=== PATIENT | male | born 1980 | race Two or more races ===

== ENCOUNTER 2017-07-28 11:16 | Observation (INO) | payer SELFPAY ==
[~2017-07-28] VITALS: Ht 182.9 cm; Wt 88.8 kg
[~2017-07-28 11:16] MED LIST: ALBUTEROL SULF8.5 GM IH; AMOXICILLIN500 MG PO; BACTRIM,SEPT1 TABLET PO; BACTROBAN NASAL1 G1 BOTH NARES; FLOVENT DISKUS1 DISK IH; NAPROSYN500 MG PO; NO MEDICATIONS; PREDNISONE20 MG PO; ROBITUSSIN AC,T10 ML PO; TAMIFLU75 MG PO; VENTOLIN HFA18 GM IH; ZITHROMAX Z-PA250 MG PO; ZOFRAN ODT4 MG PO; ZYRTEC10 M3 PO
[2017-07-28 12:16] LABS: HEMATOCRIT 48.6 % (38.0-50.0); HEMOGLOBIN 17.2 G/DL (12.5-16.6); MCH 31.8 PG (29.0-34.0); MCHC 35.4 G/DL (30.0-36.0); MCV 89.8 FL (86-99); RBC DIS.WIDTH-CV 11.9 % (11.8-14.6); RED BLOOD COUNT 5.41 M/uL (4.00-5.50); WHITE BLOOD COUNT 7.7 K/uL (4.1-10.2)
[2017-07-28 12:52] LABS: CHLORIDE 100 MEQ/L (99-109); CREATININE 1.1 MG/DL (0.6-1.3); GFR ESTIMATE (CALCULATED) > 59 mL/min/ (58.99-99999); GLUCOSE 109 mg/dL (70-99); POTASSIUM 4.3 MEQ/L (3.7-5.4); SODIUM 136 MEQ/L (136-147); UREA NITROGEN (BUN) 9 mg/dL (9-23)
[2017-07-28 13:15] LABS: PLAT.SUFFICIENCY ADEQUATE; PLATELET CLUMPS PRESENT - PLATELET COUNT APPEARS ADQ.; PLATELET COUNT UNABLE TO REPORT K/uL (156-360)
[2017-07-28 15:04] LABS: ALBUMIN 4.8 G/DL (3.2-4.8); ALKALINE PHOSPHATASE 75 IU/L (3-129); ALT (GPT) 19 IU/L (3-49); AST (GOT) 20 IU/L (2-34); DIRECT BILIRUBIN 0.5 mg/dL (0.0-0.3); TOTAL BILIRUBIN 2.7 MG/DL (0.0-1.0); TOTAL PROTEIN 8.2 G/DL (6.4-8.3)
[2017-07-28 17:28] LABS: LIPASE 19 U/L (1.0-51.0)
[2017-07-28 21:35] VITALS: BP 133/82
[2017-07-29 00:39] VITALS: BP 132/87
[2017-07-29 04:54] LABS: HEMATOCRIT 45.7 % (38.0-50.0); HEMOGLOBIN 16.1 G/DL (12.5-16.6); MCH 31.8 PG (29.0-34.0); MCHC 35.2 G/DL (30.0-36.0); MCV 90.1 FL (86-99); RBC DIS.WIDTH-CV 12.1 % (11.8-14.6); RBC DIS.WIDTH-SD 39.8 % (39-53); RED BLOOD COUNT 5.07 M/uL (4.00-5.50); WHITE BLOOD COUNT 7.9 K/uL (4.1-10.2)
[2017-07-29 04:58] LABS: PLATELET COUNT 194 K/uL (156-360)
[2017-07-29 05:06] LABS: ALBUMIN 4.2 g/dL (3.2-4.8); CHLORIDE 103 mEq/L (99-109); POTASSIUM 4.1 mEq/L (3.7-5.4); SODIUM 140 mEq/L (136-147)
[2017-07-29 05:08] LABS: GLUCOSE 108 mg/dL (70-99); TOTAL PROTEIN 7.6 g/dL (6.4-8.3)
[2017-07-29 05:10] LABS: TOTAL BILIRUBIN 3.8 mg/dL (0.0-1.0)
[2017-07-29 05:12] LABS: ALKALINE PHOSPHATASE 87 IU/L (3-129); CREATININE 1.2 mg/dL (0.6-1.3); GFR ESTIMATE (CALCULATED) > 59 mL/min/ (58.99-99999)
[2017-07-29 05:13] LABS: AST (GOT) 15 IU/L (2-34); UREA NITROGEN (BUN) 8 mg/dL (9-23)
[2017-07-29 05:15] LABS: ALT (GPT) 17 IU/L (3-49)
[2017-07-29 07:07] VITALS: BP 139/72
[2017-07-29] MEDS ORDERED: AUGMENTIN875 MG PO (11:28)
== END 2017-07-29 11:58 | disposition home or self-care (01) ==
LOC: EME 11:16 → 4SOUTH 20:46 → EDOF 20:46 → ENRESERV 21:00 → 4SOUTH 21:31
PROVIDERS: Physician Assistant
PROC: 0CJYXZZ Inspection of Mouth and Throat, External Approach (ICD-10-PCS; principal; 2017-07-28)
DX: R11.2 Nausea with vomiting, unspecified (principal); K04.7 Periapical abscess without sinus; Z53.29 Procedure and treatment not carried out because of patient's decision for other reasons; R17 Unspecified jaundice; J45.909 Unspecified asthma, uncomplicated; Z82.49 Family history of ischemic heart disease and other diseases of the circulatory system; Z83.49 Family history of other endocrine, nutritional and metabolic diseases; Z87.891 Personal history of nicotine dependence
CPT/HCPCS: 76705; 80048; 80053; 80076; 83690; 85027; 99281; 99285; G0378; J0295; J2405; J7030; J7050